=== PATIENT | female | born 1985 | race Caucasian/White ===

== ENCOUNTER 2021-10-23 15:54 | Emergency (ER) | payer MEDICAID, SELFPAY ==
[2021-10-23 15:56] VITALS: BP 110/86; PULSE 102; RESP 16; TEMP 36.6; O2SAT 98; BMI 17.5
--- NOTE | 2021-10-23 16:33 | EDS_ITS ---
HPI HPI - Psych History of Present Illness Chief Complaint: Suicidal Narrative Narrative: 35-year-old female presenting by Royce MORA to be evaluated because she was sending messages to her ex-boyfriend that she was going to ingest pills to kill herself. She states he is never done this before. She states she has a history of PTSD, depression, anxiety but does not take any medication for it because she states she does not need it. She states he was prescribed this medicine distantly and states that she is never taken it. Patient states that currently she was upset because she found out that her ex-boyfriend broke up with her to be with another girl who was at the horse show where she was. Patient denies any homicidal ideation. She denies feeling suicidal currently. PFSH PFSH Home Medications dextroamphetamine-amphetamine 10 mg tablet (Adderall) 10 mg PO 1500 10/23/21 [History Last Taken Unknown] dextroamphetamine-amphetamine 12.5 mg tablet (Adderall) 25 mg PO 0800 10/23/21 [History Last Taken Unknown] Allergy/AdvReac Type Severity Reaction Status Date / Time Sulfa (Sulfonamide Allergy Rash Verified 10/23/21 15:55 Antibiotics) Family History no significant family his Surgical History no surgical history Social History Smoking Status: Never smoker [facility] ED Constitutional Constitutional ED: Denies chills or fever(s) Eyes Eyes: Denies change in vision or diplopia ENT ENT ED: Denies rhinorrhea or sore throat Cardiovascular Cardiovascular: Denies chest pain or palpitations Respiratory/Chest Respiratory/Chest: Denies cough Gastrointestinal Gastrointestinal: Denies abdominal pain, constipation or diarrhea Genitourinary Genitourinary ED: Denies dysuria or hematuria Musculoskeletal Musculoskeletal: Denies arthralgias Integumentary Denies abscess or Abrasions Neurologic Neurologic: Denies headache(s) or paresthesias Psychiatric Psychiatric: Reports anxiety, depression, suicidal ideation and suicidal thoughts Endocrine Endocrinology: Denies polydipsia or polyphagia EXAM Physical Exam Const Vital Signs: 10/23/21 15:56 10/23/21 18:58 10/23/21 21:12 Temperature 97.9 F 96.7 F L Temperature Source Temporal Temporal Pulse Rate 102 H 73 Respiratory Rate 16 16 16 Blood Pressure 110/86 H 106/67 Blood Pressure Mean 94 80 Pulse Ox 98 98 Oxygen Delivery Method Room Air Room Air Positive well nourished General Appearance ED: irritable and NAD; Negative for pallor HEENT Reports moist mucous membranes normocephalic and atraumatic Eyes PERRL and EOMs intact bilaterally Resp normal respiratory effort and clear to auscultation bilaterally Cardio Rate: tachycardic Rhythm: regular rhythm GI non-tender Neuro oriented x3 and CN's II-XII intact bilaterally Psych Appearance: grossly normal Attitude: guarded Activity / Motor Behavior: avoids eye contact Speech: normal speech Mood & Affect: irritable Thought Content: No suicidality, No homicidality and No hallucination(s) Attention / Concentration: attention grossly intact Memory / Cognition: memory grossly intact Insight: limited Judgement: limited Skin General Skin Exam: Negative for jaundice or pallor Lesions: no lesions Rashes: no rashes MDM MDM MDM Narrative Medical decision making narrative: Patient presenting with police out of concern for suicide plan. Initially states she is no longer suicidal. She does states he has PTSD, depression, anxiety and has not take any medication for this for a long time. After speaking with the patient it does appear that the pink slip that the police have filled out does reference her thoughts of suicide however it does note that she has a plan to commit suicide by ingesting her medications that she has at home. She texted her boyfriend that she will be out of everyone's life tomorrow night. She then texted why wait goodbye. Further she told police that she made a suicide note to her daughter telling her the reason why she was going to kill herself. She was planning to go to her ex-boyfriend's apartment to do this so that her daughter would not find her and that he will. She told police that she had enough medications on hand and that tonight her ex-boyfriend will find her body. I have concern that she has a plan and intent to harm her self. I obtained blood work and her CBC and BMP are essentially unremarkable with exception of a potassium of 3.3. Salicylates and acetaminophen levels are negative. EtOH negative. Serum hCG negative. Urine drug screen positive for amphetamines however she does take Adderall. She also has MDMA in her system. Patient will need to see crisis and I plan to admit the patient for inpatient psychiatric care. EKG was requested for the patient and this is a sinus rhythm with a ventricular rate of 80 bpm without sign of ischemic change or dysrhythmia on my interpretation. Patient is still awaiting placement after speaking with crisis. She will be signed out to incoming ED physician until she can be placed. Impression: 1. Suicidal ideation 2. Hypokalemia 3. MDMA abuse Lab Data Attestation: I reviewed the patient's lab results. Labs: Laboratory Results - last 24 hr 10/23/21 10/23/21 10/23/21 16:22 16:22 16:22 WBC 6.2 RBC 4.39 Hgb 12.5 Hct 38.8 MCV 88.4 MCH 28.5 MCHC 32.2 RDW Std Deviation 42.0 RDW Coeff of Juliette 12.9 Plt Count 341 MPV 9.2 Immature Gran % (Auto) 0.300 Neut % (Auto) 76.7 H Lymph % (Auto) 14.8 L [place] % (Auto) 7.1 Eos % (Auto) 0.8 Baso % (Auto) 0.3 Absolute Neuts (auto) 4.8 Absolute Lymphs (auto) 0.92 Nucleated RBC % 0 Sodium 140 Potassium 3.3 L Chloride 107 Carbon Dioxide 27.0 Anion Gap 6 BUN 11 Creatinine 0.85 Estim Creat Clear Calc 63.44 Est GFR (MDRD) Af Amer 98 Est GFR (MDRD) Non-Af 81 BUN/Creatinine Ratio 13.0 Glucose 104 Calcium 9.1 Serum , Qual Salicylates < 1.7 L Urine Opiates Screen Urine Methadone Screen Acetaminophen < 2.0 L Ur Barbiturates Screen Ur Phencyclidine Scrn Ur Amphetamines Screen MDMA (Ecstasy) Screen U Benzodiazepines Scrn Urine Cocaine Screen U Cannabinoids Screen Ur Drug Screen Comment Ethyl Alcohol 6.0 10/23/21 10/23/21 16:22 17:45 WBC RBC Hgb Hct MCV MCH MCHC RDW Std Deviation RDW Coeff of Juliette Plt Count MPV Immature Gran % (Auto) Neut % (Auto) Lymph % (Auto) [place] % (Auto) Eos % (Auto) Baso % (Auto) Absolute Neuts (auto) Absolute Lymphs (auto) Nucleated RBC % Sodium Potassium Chloride Carbon Dioxide Anion Gap BUN Creatinine Estim Creat Clear Calc Est GFR (MDRD) Af Amer Est GFR (MDRD) Non-Af BUN/Creatinine Ratio Glucose Calcium Serum , Qual NEGATIVE Salicylates Urine Opiates Screen NEGATIVE Urine Methadone Screen NEGATIVE Acetaminophen Ur Barbiturates Screen NEGATIVE Ur Phencyclidine Scrn NEGATIVE Ur Amphetamines Screen POSITIVE H MDMA (Ecstasy) Screen POSITIVE H U Benzodiazepines Scrn NEGATIVE Urine Cocaine Screen NEGATIVE U Cannabinoids Screen NEGATIVE Ur Drug Screen Comment Ethyl Alcohol Discharge Plan Triage Chief Complaint: Suicidal Other Complaint: Depression ED Provider: Trey Rosenthal Dx/Rx/DC Orders Prescriptions: No Action dextroamphetamine-amphetamine [Adderall] 10 mg Tablet 10 mg PO 1500 dextroamphetamine-amphetamine [Adderall] 12.5 mg Tablet 25 mg PO 0800 Primary Care Provider: Care Physician,No Primary Referrals: [facility] Doctor,Out of [NON-STAFF] -
[2021-10-23 16:41] LABS: Absolute Lymphocyte Count 0.92 X10^3/uL (0.83-4.51); Absolute Neutrophil Count 4.8 X10^3/uL (2.0-7.7); Basophil# 0.02 X10^3/uL; Basophil% 0.3 % (0-1); Eosinophil# 0.05 X10^3/uL; Eosinophils% 0.8 % (0-5); Hematocrit 38.8 % (37-47); Hemoglobin 12.5 g/dL (12.0-15.0); Lymphocyte # 0.92 X10^3/ul (0.83-4.51); Lymphocyte % 14.8 % (19-41); Mean Corp Hgb Conc 32.2 g/dL (32-36); Mean Corpuscular Hgb 28.5 pg (27.0-32.0); Mean Corpuscular Volume 88.4 fL (81-99); Mean Platelet Vol. 9.2 fl (6.2-12.0); Monocyte# 0.44 X10^3/uL; Monocyte% 7.1 % (0-10); NRBC Flagged by Analyzer 0 % (0-5); Neutrophil # 4.77 X10^3/uL (2.7-7.7); Neutrophil % 76.7 % (47-70); Platelet Count 341 K/mm3 (150-450); RBC Distribution Width CV 12.9 % (11.6-14.6); Red Blood Count 4.39 M/mm3 (4.2-5.4); White Blood Count 6.2 K/mm3 (4.4-11.0)
--- NOTE | 2021-10-23 16:46 | EKG12_ITS ---
Test Reason : MEDICAL CLEARANCE Blood Pressure : / mmHG Vent. Rate : 080 BPM Atrial Rate : 080 BPM P-R Int : 118 ms QRS Dur : 084 ms QT Int : 374 ms P-R-T Axes : 077 077 059 degrees QTc Int : 431 ms Normal sinus rhythm Normal ECG Confirmed by JORDAN TOLEDO, JOSELITO ([id number]), newspaper or periodical editor LY LOVE ([id number]) on 10/25/2021 8:43:15 AM Referred By: Confirmed By:JOSELITO ORTEGA MD
[2021-10-23 16:53] LABS: Anion Gap 6 (5-15); BUN 11 mg/dL (7-18); Calcium,Total 9.1 mg/dL (8.5-10.1); Chloride 107 mmol/L (98-107); Creatinine, Serum 0.85 mg/dL (0.55-1.02); EST Glomerular Filtration Rate 81 mL/min (>60); Est Glom Filt Rate - Afr Amer 98 mL/min (>60); Estimated Creatinine Clearance 63.44 ml/min; Glucose 104 mg/dL (74-106); Potassium 3.3 mmol/L (3.5-5.1); Sodium Level 140 mmol/L (136-145)
--- NOTE | 2021-10-23 17:03 | NURSING ---
NO OLD EKGS
[2021-10-23 17:12] LABS: Internal QC Validated? YES +Cl - CLEAR BKGD; Pregnancy, Serum, hCG Quali. NEGATIVE Negative
[2021-10-23 17:22] LABS: Salicylate < 1.7 mg/dL (2.8-20.0)
[2021-10-23 17:23] LABS: Acetaminophen (Tylenol) Level < 2.0 ug/mL (10.0-30.0)
[2021-10-23 18:18] LABS: Amphetamine Urine VISTA POSITIVE (<1000 ng/mL); Barbiturate Urine VISTA NEGATIVE (< 200 ng/mL); Benzodiazepine Urine VISTA NEGATIVE (< 200 ng/mL); Cocaine Urine VISTA NEGATIVE (< 300 ng/mL); Ecstacy Urine VISTA POSITIVE (< 500 ng/mL); Methadone Urine VISTA NEGATIVE (< 300 ng/mL); PCP Urine VISTA NEGATIVE (< 25 ng/mL); THC Urine VISTA NEGATIVE (< 50 ng/mL); Vista UDS pH Range 6
--- NOTE | 2021-10-23 18:24 | NURSING ---
FAXED CHART TO [facility]
[2021-10-23 18:58] VITALS: RESP 16
[2021-10-23 21:12] VITALS: BP 106/67; PULSE 73; RESP 16; TEMP 35.9; O2SAT 98
--- NOTE | 2021-10-23 21:54 | NURSING ---
PATIENTS DAUGHTER HANDED US $65 TO PUT INTO THE PATIENTS WALLET. MONEY WAS VERIFIED BY NURSE HEREDIA AND ENVIRONMENTAL MARKETER LUIS ANTONIO AND NURSE JENNA WATCHED GIOVANNA PUT MONEY INTO PATIENTS WALLET
[2021-10-24 00:16] VITALS: RESP 16
[2021-10-24 01:31] VITALS: BP 105/59; PULSE 98; RESP 16; O2SAT 100
== END 2021-10-24 02:41 ==
PROVIDERS: Emergency Provider Student in an Organized Health Care Education/Training Program; Visit Provider Student in an Organized Health Care Education/Training Program
DX: R45.851 Suicidal ideations (principal); F16.10 Hallucinogen abuse, uncomplicated; E87.6 Hypokalemia; F32.A Depression, unspecified; F43.10 Post-traumatic stress disorder, unspecified; F41.9 Anxiety disorder, unspecified; Z79.899 Other long term (current) drug therapy; Z91.14 Patient's other noncompliance with medication regimen
CPT/HCPCS: G0378; 36415; 59025; 59050; 80048; 80307; 80329; 82077; 84703; 85025; 87811; 93005; 99218; 99285; G0480